=== PATIENT | female | born 1980 | race Caucasian/White ===

== ENCOUNTER 2018-04-02 08:42 | Inpatient (IN) ==
[2018-04-02] MEDS ORDERED: SODIUM CHLORIDE 0.9% 1,000 ML IV STA (09:02)
[2018-04-02] MEDS ORDERED: ONDANSETRON 4 MG/2 ML VIAL IV STA ×2 (09:02→13:53)
[2018-04-02 09:31] LABS: Basophils # 0.1 10*3/uL (0.0-0.2); Basophils % 0.9 % (0.0-0.8); Eosinophils # 0.2 10*3/uL (0.0-0.87); Hematocrit 37.4 VOL% (35.7-47.0); Hemoglobin 12.6 GM/DL (12.0-16.0); Immature Granulocytes % 0.1 %; Immature Granulocytes Absolute 0.01 #; Lymphocytes # 2.3 10*3/uL (1.4-4.0); Lymphocytes % 33.3 % (21.3-54.2); Mean Corpuscular HGB Conc 33.7 GM/DL (32-36); Mean Corpuscular Hemoglobin 32 PG (27-34); Mean Corpuscular Volume 94.7 FL (87-102); Mean Platelet Volume 9.2 FL (9.6-12.0); Monocytes # 0.6 10*3/uL (0.11-0.8); Monocytes % 8.3 % (1.7-12.7); Neutrophils # 3.8 10*3/uL (1.4-7.4); Neutrophils % 54.4 % (38.7-73.9); Platelet Count 334 T/CUMM (130-400); Red Blood Count 3.95 MC/CUMM (3.8-5.5); Red Cell Distribution Width 13.5 % (9.3-17.3)
[2018-04-02 10:02] LABS: Albumin 3.8 G/DL (3.4-5.0); Bilirubin,Total 0.5 MG/DL (0.2-1.0); Calcium 8.8 MG/DL (8.5-10.1); Potassium 3.6 MMOL/L (3.5-5.1); Total Protein 7.9 G/DL (6.4-8.3)
[2018-04-02 10:18] LABS: Apearance,Urine Slightly Hazy (Clear); Bilirubin,Urine Negative (Negative); Blood, Urine Negative (Negative); Glucose,Urine (UA) Negative (Negative); Ketones,Urine 5 mg/dL (Negative); Nitrite,Urine Negative (Negative); Protein,Urine Negative; RBC,Urine 7 /HPF (0-4); Squamous Epithelial Cell,Urine Occasional /HPF (0-10); Transitional Epi Cells,Urine Occasional /HPF (<1); Urine Color Yellow (Yellow); Urine Specific Gravity 1.017 (1.001-1.035); Urine Urobilinogen < 2.0 EU/DL (0.2-1.0); WBC,Urine 10 /HPF (0-6)
[2018-04-02] MEDS ORDERED: MORPHINE 4 MG/1 ML VIAL IV STA ×4 (13:53→18:24)
[2018-04-02] MEDS ORDERED: KETOROLAC 30 MG/1 ML VIAL IV STA (17:48)
[2018-04-02] MEDS ORDERED: KETOROLAC 30 MG/1 ML VIAL ONE (17:53)
[2018-04-02] MEDS ORDERED: AZITHROMYCIN 250 MG TABLET PO STA (18:24)
[2018-04-02] MEDS ORDERED: cefTRIAXone 1,000 MG in SODIUM CHLORIDE 0.9% 100 ML IV STA (18:24)
[2018-04-02] MEDS ORDERED: DEXTROSE 50% 25 GM/50 ML VIAL IV PRN ×2 (18:50)
[2018-04-02] MEDS ORDERED: ONDANSETRON 4 MG/2 ML VIAL IV PRN (18:50)
[2018-04-02] MEDS ORDERED: GLUCAGON 1 MG VIAL IM PRN ×2 (18:50)
[2018-04-02] MEDS ORDERED: ACETAMINOPHEN 325 MG TABLET PO PRN (18:54)
[2018-04-02] MEDS: GABAPENTIN 300 MG CAPSULE PO SCH (22:09)
[2018-04-02] MEDS: ENOXAPARIN 40 MG/0.4 ML SYRINGE SUBCUT SCH (22:11)
[2018-04-02] MEDS: PROMETHAZINE 25 MG TABLET PO PRN (22:14)
[2018-04-02] MEDS: INSULIN REGULAR 100 UNIT/ML SUBCUT SCH (22:14)
[2018-04-03 04:21] LABS: Basophils # 0.1 10*3/uL (0.0-0.2); Basophils % 0.8 % (0.0-0.8); Eosinophils # 0.3 10*3/uL (0.0-0.87); Eosinophils % 3.9 % (0.00-10.9); Hematocrit 34.4 VOL% (35.7-47.0); Hemoglobin 11.2 GM/DL (12.0-16.0); Immature Granulocytes % 0.3 %; Immature Granulocytes Absolute 0.02 #; Lymphocytes # 3.8 10*3/uL (1.4-4.0); Lymphocytes % 51.5 % (21.3-54.2); Mean Corpuscular HGB Conc 32.6 GM/DL (32-36); Mean Corpuscular Hemoglobin 32 PG (27-34); Mean Corpuscular Volume 96.6 FL (87-102); Mean Platelet Volume 9.4 FL (9.6-12.0); Monocytes # 0.7 10*3/uL (0.11-0.8); Monocytes % 9.1 % (1.7-12.7); Neutrophils # 2.5 10*3/uL (1.4-7.4); Neutrophils % 34.4 % (38.7-73.9); Platelet Count 296 T/CUMM (130-400); Red Blood Count 3.56 MC/CUMM (3.8-5.5); Red Cell Distribution Width 13.4 % (9.3-17.3); White Blood Count 7.4 T/CUMM (4-12)
[2018-04-03 05:19] LABS: Band Neutrophils 1 % (0-10); Eosinophils 4 % (0-10); Lymphocytes 53 % (20-55); Platelet Estimate Normal; Segmented Neutrophils 37 % (50-85); Total Cells Counted 100
[2018-04-03 05:20] LABS: Hypochromasia Slight
[2018-04-03 05:51] LABS: Bilirubin,Total 0.4 MG/DL (0.2-1.0); Osmolality,Calculated 279.3 MOS/KG (273-304); Potassium 3.6 MMOL/L (3.5-5.1); Total Protein 6.3 G/DL (6.4-8.3)
[2018-04-03] MEDS: INSULIN REGULAR 100 UNIT/ML SUBCUT SCH ×2 (07:43→12:42)
[2018-04-03] MEDS: PANTOPRAZOLE 40 MG TABLET PO SCH (08:07)
[2018-04-03] MEDS: MULTIVITAMIN (CENTRUM) TABLET PO SCH (08:08)
[2018-04-03] MEDS: ALBUTEROL/IPRATROPIUM 3 ML NEB RESP TX SCH ×3 (08:42→19:15)
[2018-04-03] MEDS ORDERED: Mirabegron [Myrbetriq] PO SCH (09:00)
[2018-04-03] MEDS: methylPREDNISolone SOD SUC 40 MG/1 ML VIAL IV SCH ×3 (09:17→23:49)
[2018-04-03] MEDS: NICOTINE 21 MG/24 HR PATCH TRANSDERM SCH (09:17)
[2018-04-03] MEDS: AZITHROMYCIN INJ 500 MG in SODIUM CHLORIDE 0.9% 250 ML IV SCH (18:08)
[2018-04-03] MEDS ORDERED: ALPRAZolam 0.5 MG TABLET PO ONE (19:38)
[2018-04-03] MEDS ORDERED: METOPROLOL TARTRATE 5 MG/5 ML VIAL IV ONE (19:38)
[2018-04-03] MEDS ORDERED: SODIUM CHLORIDE 0.9% 500 ML IV ONE (19:39)
[2018-04-03] MEDS: cefTRIAXone 1,000 MG in SYRINGE 1 EACH IV SCH (19:58)
[2018-04-03] MEDS: ENOXAPARIN 40 MG/0.4 ML SYRINGE SUBCUT SCH (20:04)
[2018-04-03] MEDS: GABAPENTIN 300 MG CAPSULE PO SCH (20:04)
[2018-04-03] MEDS: guaiFENesin/CODEINE 5 ML LIQUID PO PRN (21:32)
[2018-04-04] MEDS: ALBUTEROL/IPRATROPIUM 3 ML NEB RESP TX SCH ×4 (00:26→19:30)
[2018-04-04] MEDS: MULTIVITAMIN (CENTRUM) TABLET PO SCH (08:50)
[2018-04-04] MEDS: PANTOPRAZOLE 40 MG TABLET PO SCH (08:50)
[2018-04-04] MEDS: NICOTINE 21 MG/24 HR PATCH TRANSDERM SCH (08:51)
[2018-04-04] MEDS: methylPREDNISolone SOD SUC 40 MG/1 ML VIAL IV SCH ×2 (08:52→17:13)
[2018-04-04] MEDS: KETOROLAC 30 MG/1 ML VIAL IV PRN (11:26)
[2018-04-04] MEDS ORDERED: ENOXAPARIN 80 MG/0.8 ML SYRINGE SUBCUT ONE (13:32)
[2018-04-04] MEDS ORDERED: HYDROmorphone 2 MG/1 ML VIAL IV PRN (14:00)
[2018-04-04 15:18] LABS: Troponin I Only < 0.015 NG/ML (0.00-0.045)
[2018-04-04] MEDS: AZITHROMYCIN INJ 500 MG in SODIUM CHLORIDE 0.9% 250 ML IV SCH (18:26)
[2018-04-04] MEDS: METOPROLOL TARTRATE 25 MG TABLET PO SCH (20:18)
[2018-04-04] MEDS: guaiFENesin/CODEINE 5 ML LIQUID PO PRN (20:18)
[2018-04-04] MEDS: GABAPENTIN 300 MG CAPSULE PO SCH (20:18)
[2018-04-04] MEDS: ENOXAPARIN 40 MG/0.4 ML SYRINGE SUBCUT SCH (20:19)
[2018-04-04] MEDS: cefTRIAXone 1,000 MG in SYRINGE 1 EACH IV SCH (20:19)
[2018-04-04] MEDS: VANCOMYCIN INJ 1,250 MG in SODIUM CHLORIDE 0.9% 250 ML IV SCH (20:20)
[2018-04-04] MEDS: HYDROmorphone 2 MG/1 ML VIAL IV PRN (20:26)
[2018-04-05] MEDS: ALBUTEROL/IPRATROPIUM 3 ML NEB RESP TX SCH ×4 (00:40→19:29)
[2018-04-05] MEDS: VANCOMYCIN INJ 1,250 MG in SODIUM CHLORIDE 0.9% 250 ML IV SCH ×3 (04:39→21:01)
[2018-04-05] MEDS: HYDROmorphone 2 MG/1 ML VIAL IV PRN ×3 (04:39→20:47)
[2018-04-05] MEDS: METOPROLOL TARTRATE 25 MG TABLET PO SCH ×2 (08:35→20:52)
[2018-04-05] MEDS: NICOTINE 21 MG/24 HR PATCH TRANSDERM SCH (08:35)
[2018-04-05] MEDS: MULTIVITAMIN (CENTRUM) TABLET PO SCH (08:35)
[2018-04-05] MEDS: PANTOPRAZOLE 40 MG TABLET PO SCH (08:35)
[2018-04-05] MEDS: methylPREDNISolone SOD SUC 40 MG/1 ML VIAL IV SCH ×3 (08:36→17:55)
[2018-04-05] MEDS: KETOROLAC 30 MG/1 ML VIAL IV PRN (17:55)
[2018-04-05] MEDS: cefTRIAXone 1,000 MG in SYRINGE 1 EACH IV SCH (20:48)
[2018-04-05] MEDS: ENOXAPARIN 40 MG/0.4 ML SYRINGE SUBCUT SCH (20:51)
[2018-04-05] MEDS: GABAPENTIN 300 MG CAPSULE PO SCH (20:52)
[2018-04-05] MEDS: AZITHROMYCIN 250 MG TABLET PO SCH (20:52)
[2018-04-05] MEDS: guaiFENesin/CODEINE 5 ML LIQUID PO PRN (21:02)
[2018-04-05] MEDS: PROMETHAZINE 25 MG TABLET PO PRN (21:02)
[2018-04-06] MEDS: methylPREDNISolone SOD SUC 40 MG/1 ML VIAL IV SCH ×3 (00:13→16:54)
[2018-04-06] MEDS: ALBUTEROL/IPRATROPIUM 3 ML NEB RESP TX SCH ×4 (01:01→20:32)
[2018-04-06] MEDS: HYDROmorphone 2 MG/1 ML VIAL IV PRN ×3 (02:44→22:08)
[2018-04-06 05:18] LABS: Basophils % 0.1 % (0.0-0.8); Hematocrit 32.7 VOL% (35.7-47.0); Hemoglobin 10.6 GM/DL (12.0-16.0); Immature Granulocytes % 0.8 %; Immature Granulocytes Absolute 0.12 #; Lymphocytes # 1.3 10*3/uL (1.4-4.0); Lymphocytes % 9.1 % (21.3-54.2); Mean Corpuscular HGB Conc 32.4 GM/DL (32-36); Mean Corpuscular Hemoglobin 32 PG (27-34); Mean Corpuscular Volume 97.9 FL (87-102); Mean Platelet Volume 9.9 FL (9.6-12.0); Monocytes # 0.5 10*3/uL (0.11-0.8); Monocytes % 3.7 % (1.7-12.7); Neutrophils # 12.2 10*3/uL (1.4-7.4); Neutrophils % 86.3 % (38.7-73.9); Platelet Count 342 T/CUMM (130-400); Red Blood Count 3.34 MC/CUMM (3.8-5.5); Red Cell Distribution Width 13.9 % (9.3-17.3); White Blood Count 14.2 T/CUMM (4-12)
[2018-04-06] MEDS: VANCOMYCIN INJ 1,250 MG in SODIUM CHLORIDE 0.9% 250 ML IV SCH ×3 (05:18→20:29)
[2018-04-06 05:26] LABS: Calcium 8.4 MG/DL (8.5-10.1); Osmolality,Calculated 279.5 MOS/KG (273-304); Potassium 3.7 MMOL/L (3.5-5.1)
[2018-04-06] MEDS: NICOTINE 21 MG/24 HR PATCH TRANSDERM SCH (08:23)
[2018-04-06] MEDS: MULTIVITAMIN (CENTRUM) TABLET PO SCH (08:23)
[2018-04-06] MEDS: METOPROLOL TARTRATE 25 MG TABLET PO SCH ×2 (08:24→20:28)
[2018-04-06] MEDS: PANTOPRAZOLE 40 MG TABLET PO SCH (08:24)
[2018-04-06] MEDS: ALPRAZolam 0.5 MG TABLET PO SCH ×2 (16:56→21:43)
[2018-04-06] MEDS: GABAPENTIN 300 MG CAPSULE PO SCH (20:28)
[2018-04-06] MEDS: cefTRIAXone 1,000 MG in SYRINGE 1 EACH IV SCH (20:29)
[2018-04-06] MEDS: ENOXAPARIN 40 MG/0.4 ML SYRINGE SUBCUT SCH (20:30)
[2018-04-06] MEDS ORDERED: ALPRAZolam 0.5 MG TABLET PO SCH (21:00)
[2018-04-06] MEDS: AZITHROMYCIN 250 MG TABLET PO SCH (22:09)
[2018-04-07] MEDS: ALBUTEROL/IPRATROPIUM 3 ML NEB RESP TX SCH ×4 (00:21→21:18)
[2018-04-07] MEDS: methylPREDNISolone SOD SUC 40 MG/1 ML VIAL IV SCH ×3 (01:34→16:17)
[2018-04-07] MEDS: VANCOMYCIN INJ 1,250 MG in SODIUM CHLORIDE 0.9% 250 ML IV SCH ×3 (06:59→21:12)
[2018-04-07] MEDS: PANTOPRAZOLE 40 MG TABLET PO SCH (09:01)
[2018-04-07] MEDS: MULTIVITAMIN (CENTRUM) TABLET PO SCH (09:01)
[2018-04-07] MEDS: NICOTINE 21 MG/24 HR PATCH TRANSDERM SCH (09:01)
[2018-04-07] MEDS: ALPRAZolam 0.5 MG TABLET PO SCH ×2 (09:01→21:14)
[2018-04-07] MEDS: METOPROLOL TARTRATE 25 MG TABLET PO SCH ×2 (09:02→21:15)
[2018-04-07] MEDS: HYDROmorphone 2 MG/1 ML VIAL IV PRN ×2 (09:44→21:12)
[2018-04-07] MEDS: cefTRIAXone 1,000 MG in SYRINGE 1 EACH IV SCH (21:13)
[2018-04-07] MEDS: ENOXAPARIN 40 MG/0.4 ML SYRINGE SUBCUT SCH (21:13)
[2018-04-07] MEDS: GABAPENTIN 300 MG CAPSULE PO SCH (21:14)
[2018-04-07] MEDS: PROMETHAZINE 25 MG TABLET PO PRN (21:14)
[2018-04-07] MEDS: AZITHROMYCIN 250 MG TABLET PO SCH (21:14)
[2018-04-08] MEDS: ALBUTEROL/IPRATROPIUM 3 ML NEB RESP TX SCH ×4 (00:16→19:31)
[2018-04-08] MEDS: guaiFENesin/CODEINE 5 ML LIQUID PO PRN (00:17)
[2018-04-08] MEDS: methylPREDNISolone SOD SUC 40 MG/1 ML VIAL IV SCH ×2 (00:18→09:18)
[2018-04-08] MEDS: VANCOMYCIN INJ 1,250 MG in SODIUM CHLORIDE 0.9% 250 ML IV SCH ×2 (04:50→11:22)
[2018-04-08] MEDS: HYDROmorphone 2 MG/1 ML VIAL IV PRN ×3 (04:50→17:38)
[2018-04-08 05:32] LABS: Basophils % 0.1 % (0.0-0.8); Hematocrit 34.1 VOL% (35.7-47.0); Hemoglobin 11.4 GM/DL (12.0-16.0); Immature Granulocytes % 2.2 %; Immature Granulocytes Absolute 0.34 #; Lymphocytes # 1.8 10*3/uL (1.4-4.0); Lymphocytes % 11.4 % (21.3-54.2); Mean Corpuscular HGB Conc 33.4 GM/DL (32-36); Mean Corpuscular Hemoglobin 31 PG (27-34); Mean Corpuscular Volume 92.2 FL (87-102); Mean Platelet Volume 9.3 FL (9.6-12.0); Monocytes # 0.7 10*3/uL (0.11-0.8); Monocytes % 4.8 % (1.7-12.7); NRBC # 0.03 10*3/uL; Neutrophils # 12.5 10*3/uL (1.4-7.4); Neutrophils % 81.5 % (38.7-73.9); Platelet Count 440 T/CUMM (130-400); Red Cell Distribution Width 13.4 % (9.3-17.3); White Blood Count 15.4 T/CUMM (4-12)
[2018-04-08 05:50] LABS: Calcium 8.4 MG/DL (8.5-10.1); Osmolality,Calculated 281.4 MOS/KG (273-304); Potassium 3.5 MMOL/L (3.5-5.1)
[2018-04-08] MEDS: NICOTINE 21 MG/24 HR PATCH TRANSDERM SCH (09:15)
[2018-04-08] MEDS: PANTOPRAZOLE 40 MG TABLET PO SCH (09:16)
[2018-04-08] MEDS: MULTIVITAMIN (CENTRUM) TABLET PO SCH (09:16)
[2018-04-08] MEDS: METOPROLOL TARTRATE 25 MG TABLET PO SCH ×2 (09:16→20:30)
[2018-04-08] MEDS: ALPRAZolam 0.5 MG TABLET PO SCH ×2 (09:16→20:30)
[2018-04-08] MEDS ORDERED: DOXYCYCLINE HYCLATE 100 MG CAPSULE PO SCH (15:00)
[2018-04-08] MEDS: predniSONE 20 MG TABLET PO SCH (15:39)
[2018-04-08] MEDS: LEVOFLOXACIN 500 MG TABLET PO SCH (15:39)
[2018-04-08] MEDS: ENOXAPARIN 40 MG/0.4 ML SYRINGE SUBCUT SCH (20:30)
[2018-04-08] MEDS: GABAPENTIN 300 MG CAPSULE PO SCH (20:30)
[2018-04-08] MEDS: PROMETHAZINE 25 MG TABLET PO PRN (20:35)
[2018-04-09] MEDS: HYDROmorphone 2 MG/1 ML VIAL IV PRN ×2 (00:01→06:06)
[2018-04-09] MEDS: guaiFENesin/CODEINE 5 ML LIQUID PO PRN (00:02)
[2018-04-09] MEDS: ALBUTEROL/IPRATROPIUM 3 ML NEB RESP TX SCH ×2 (00:41→07:15)
[2018-04-09 05:49] LABS: Basophils # 0.1 10*3/uL (0.0-0.2); Basophils % 0.2 % (0.0-0.8); Eosinophils # 0.1 10*3/uL (0.0-0.87); Eosinophils % 0.4 % (0.00-10.9); Hematocrit 33.6 VOL% (35.7-47.0); Hemoglobin 11.2 GM/DL (12.0-16.0); Immature Granulocytes % 3.4 %; Immature Granulocytes Absolute 0.73 #; Lymphocytes # 3.2 10*3/uL (1.4-4.0); Lymphocytes % 15.2 % (21.3-54.2); Mean Corpuscular HGB Conc 33.3 GM/DL (32-36); Mean Corpuscular Hemoglobin 32 PG (27-34); Mean Corpuscular Volume 94.4 FL (87-102); Mean Platelet Volume 9.2 FL (9.6-12.0); Monocytes # 1.7 10*3/uL (0.11-0.8); Monocytes % 7.8 % (1.7-12.7); NRBC # 0.02 10*3/uL; Neutrophils # 15.6 10*3/uL (1.4-7.4); Platelet Count 424 T/CUMM (130-400); Red Blood Count 3.56 MC/CUMM (3.8-5.5); Red Cell Distribution Width 13.5 % (9.3-17.3); White Blood Count 21.3 T/CUMM (4-12)
[2018-04-09 06:19] LABS: Band Neutrophils 1 % (0-10); Lymphocytes 27 % (20-55); Macrocytosis 1+; Nucleated Red Blood Cells 1 (0-5); Platelet Estimate Increased; Segmented Neutrophils 70 % (50-85); Total Cells Counted 100
[2018-04-09 06:26] LABS: Calcium 8.2 MG/DL (8.5-10.1); Osmolality,Calculated 282.4 MOS/KG (273-304); Potassium 3.3 MMOL/L (3.5-5.1)
[2018-04-09] MEDS: LEVOFLOXACIN 500 MG TABLET PO SCH (08:43)
[2018-04-09] MEDS: MULTIVITAMIN (CENTRUM) TABLET PO SCH (08:43)
[2018-04-09] MEDS: PANTOPRAZOLE 40 MG TABLET PO SCH (08:43)
[2018-04-09] MEDS: ALPRAZolam 0.5 MG TABLET PO SCH (08:44)
[2018-04-09] MEDS: predniSONE 20 MG TABLET PO SCH (08:44)
[2018-04-09] MEDS: NICOTINE 21 MG/24 HR PATCH TRANSDERM SCH (08:44)
[2018-04-09] MEDS: METOPROLOL TARTRATE 25 MG TABLET PO SCH (08:44)
[2018-04-09 08:51] VITALS: BP 123/94
[2018-04-09] MEDS ORDERED: POTASSIUM CHLORIDE 20 MEQ TABLET PO PRN (09:06)
[2018-04-09] MEDS ORDERED: POTASSIUM CHLORIDE 20 MEQ TABLET PO ONE (10:43)
== END 2018-04-09 11:46 | disposition home or self-care (01) | DRG 190 ==
LOC: N.ED 08:42 → N.EDINP 18:50 → SUATTDRO 18:50 → N.EDINP 20:10 → N.TELEN 21:01
PROVIDERS: ADMIT Internal Medicine; ATTEND Internal Medicine

== ENCOUNTER 2019-08-15 18:53 | Observation (INO) ==
[2019-08-15] MEDS ORDERED: SODIUM CHLORIDE 0.9% 1,000 ML IV STA ×2 (19:35→22:04)
[2019-08-15] MEDS ORDERED: KETOROLAC 30 MG/1 ML VIAL IV STA (19:35)
[2019-08-15 20:12] LABS: Basophils # 0.1 10*3/uL (0.0-0.2); Basophils % 0.9 % (0.0-0.8); Eosinophils # 0.2 10*3/uL (0.0-0.87); Eosinophils % 2.1 % (0.00-10.9); Hematocrit 40.7 VOL% (35.7-47.0); Hemoglobin 13.2 GM/DL (12.0-16.0); Immature Granulocytes % 0.7 %; Immature Granulocytes Absolute 0.07 #; Lymphocytes # 3.5 10*3/uL (1.4-4.0); Lymphocytes % 33.5 % (21.3-54.2); Mean Corpuscular HGB Conc 32.4 GM/DL (32-36); Mean Platelet Volume 8.9 FL (9.6-12.0); Monocytes % 7.3 % (1.7-12.7); Neutrophils % 55.5 % (38.7-73.9); Platelet Count 289 T/CUMM (130-400); Red Blood Count 4.11 MC/CUMM (3.8-5.5); Red Cell Distribution Width 12.9 % (9.3-17.3); White Blood Count 10.5 T/CUMM (4-12)
[2019-08-15] MEDS ORDERED: ONDANSETRON 4 MG/2 ML VIAL IV ONE (20:30)
[2019-08-15 20:32] LABS: Alanine Aminotransferase 23 U/L (13-56); Albumin 3.9 G/DL (3.4-5.0); Alkaline Phosphatase 98 U/L (45-117); Aspartate Amino Transferase 14 U/L (0-37); Bilirubin,Total < 0.39 MG/DL (0.2-1.0); Blood Urea Nitrogen 12 MG/DL (7-18); Calcium 8.8 MG/DL (8.5-10.1); Estimated Glom Filtration Rate 85 ML/MIN; Glucose 85 MG/DL (74-106); Osmolality,Calculated 273.7 MOS/KG (273-304); Total Protein 7.5 G/DL (6.4-8.3)
[2019-08-15 20:42] LABS: Apearance,Urine CLEAR (Clear); Bacteria,Urine Occasional /HPF (Few); Bilirubin,Urine Negative (Negative); Blood, Urine Negative (Negative); Glucose,Urine (UA) Negative (Negative); Ketones,Urine Negative (Negative); Mucus,Urine Occasional /LPF (Occasional); Nitrite,Urine Negative (Negative); Protein,Urine Negative; RBC,Urine 8 /HPF (0-4); Renal Epithelial Cells,Urine Occasional /HPF (<1); Squamous Epithelial Cell,Urine Occasional /HPF (0-10); Urine Color Yellow (Yellow); Urine Specific Gravity 1.016 (1.001-1.035); Urine Urobilinogen < 2.0 EU/DL (0.2-1.0); WBC,Urine 3 /HPF (0-6)
[2019-08-15] MEDS ORDERED: METOCLOPRAMIDE 10 MG/2 ML VIAL IV STA (21:26)
[2019-08-15] MEDS ORDERED: PIPERACILLIN/TAZOBACTAM 3,375 MG in SODIUM CHLORIDE 0.9% 100 ML IV STA (22:08)
[2019-08-15] MEDS ORDERED: ONDANSETRON 4 MG/2 ML VIAL IV PRN (22:14)
[2019-08-15] MEDS ORDERED: MORPHINE 4 MG/1 ML VIAL IV PRN (22:14)
[2019-08-15] MEDS ORDERED: MORPHINE 4 MG/1 ML VIAL IV STA (23:13)
[2019-08-15] MEDS ORDERED: PROMETHAZINE INJ 12.5 MG in SODIUM CHLORIDE 0.9% 50 ML IV STA (23:13)
[2019-08-16] MEDS: DEXTROSE 5% NACL 0.45% 1,000 ML IV SCH ×3 (00:30→14:30)
[2019-08-16 05:11] LABS: Basophils # 0.1 10*3/uL (0.0-0.2); Basophils % 0.8 % (0.0-0.8); Eosinophils # 0.3 10*3/uL (0.0-0.87); Eosinophils % 2.5 % (0.00-10.9); Hemoglobin 11.3 GM/DL (12.0-16.0); Immature Granulocytes % 0.4 %; Immature Granulocytes Absolute 0.04 #; Lymphocytes # 3.7 10*3/uL (1.4-4.0); Lymphocytes % 36.4 % (21.3-54.2); Mean Corpuscular HGB Conc 32.3 GM/DL (32-36); Mean Corpuscular Volume 100.3 FL (87-102); Mean Platelet Volume 9.2 FL (9.6-12.0); Monocytes % 8.4 % (1.7-12.7); Neutrophils % 51.5 % (38.7-73.9); Platelet Count 241 T/CUMM (130-400); Red Blood Count 3.49 MC/CUMM (3.8-5.5); Red Cell Distribution Width 12.9 % (9.3-17.3); White Blood Count 10.2 T/CUMM (4-12)
[2019-08-16 05:36] LABS: Calcium 7.7 MG/DL (8.5-10.1); Osmolality,Calculated 280.3 MOS/KG (273-304)
[2019-08-16] MEDS ORDERED: PIPERACILLIN/TAZOBACTAM 3,375 MG in SODIUM CHLORIDE 0.9% 100 ML IV SCH (07:00)
[2019-08-16] MEDS ORDERED: ceFAZolin 1,000 MG in SYRINGE 1 EACH IV ONE (08:22)
[2019-08-16 08:35] LABS: Barbiturates Screen,Urine Negative (Negative); Benzodiazepines Screen,Urine Negative (Negative); Cannabinoid Screen,Urine Negative (Negative); Opiate Screen,Urine Positive (Negative); Phencyclidine Screen,Urine Negative (Negative)
[2019-08-16] MEDS ORDERED: PANTOPRAZOLE 40 MG VIAL IV SCH (09:00)
[2019-08-16] MEDS ORDERED: ONDANSETRON 4 MG/2 ML VIAL IV PRN (09:02)
[2019-08-16] MEDS ORDERED: PROMETHAZINE INJ 25 MG in SODIUM CHLORIDE 0.9% 50 ML IV PRN (09:02)
[2019-08-16] MEDS ORDERED: diphenhydrAMINE 50 MG/1 ML VIAL IV PRN (09:02)
[2019-08-16] MEDS ORDERED: BUPIVACAINE MPF 0.25% 30 ML VIAL ONE (09:43)
[2019-08-16] MEDS ORDERED: TISSUE ADHESIVE 1 EACH APPLICATOR TOP ONE (09:43)
[2019-08-16] MEDS ORDERED: LIDOCAINE 1%/EPI INJ 20 ML VIAL ONE (09:43)
[2019-08-16] MEDS ORDERED: ONDANSETRON 4 MG/2 ML VIAL ONE ×2 (11:18→11:30)
[2019-08-16] MEDS ORDERED: MEPERIDINE 25 MG/1 ML VIAL ONE ×2 (11:18→11:24)
[2019-08-16] MEDS: MEPERIDINE 25 MG/1 ML VIAL IV PRN ×2 (11:20→11:30)
[2019-08-16] MEDS ORDERED: PROMETHAZINE 25 MG/1 ML VIAL ONE (11:24)
[2019-08-16] MEDS ORDERED: PROPOFOL 200 MG/20 ML VIAL IV ONE (11:29)
[2019-08-16] MEDS ORDERED: SUCCINYLCHOLINE 200 MG/10 ML VIAL ONE (11:30)
[2019-08-16] MEDS ORDERED: DEXAMETHASONE 4 MG/1 ML VIAL ONE (11:30)
[2019-08-16] MEDS ORDERED: fentaNYL 100 MCG/2 ML VIAL ONE (11:30)
[2019-08-16] MEDS ORDERED: MIDAZOLAM 2 MG/2 ML VIAL ONE (11:30)
[2019-08-16] MEDS ORDERED: KETOROLAC 30 MG/1 ML VIAL ONE (11:30)
[2019-08-16] MEDS ORDERED: NEOSTIGMINE 10 MG/10 ML VIAL ONE (11:30)
[2019-08-16] MEDS ORDERED: ACETAMINOPHEN 1,000 MG/100 ML VIAL IV ONE (11:30)
[2019-08-16] MEDS ORDERED: ROCURONIUM 100 MG/10 ML VIAL IV ONE (11:30)
[2019-08-16] MEDS ORDERED: SEVOFLURANE 1 UNIT/15 MINUTE INH ONE (11:30)
[2019-08-16] MEDS ORDERED: LIDOCAINE 2% 5 ML VIAL ONE (11:30)
[2019-08-16] MEDS ORDERED: GLYCOPYRROLATE 0.4 MG/2 ML VIAL ONE (11:30)
[2019-08-16] MEDS ORDERED: LACTATED RINGERS 1,000 ML IV ONE (11:30)
[2019-08-16] MEDS ORDERED: HYDROmorphone 2 MG/1 ML VIAL IV ONE (15:06)
[2019-08-16 19:16] VITALS: BP 107/71
== END 2019-08-16 20:33 | disposition home or self-care (01) ==
LOC: N.EDINP 18:53 → N.ED 18:53 → N.3E 22:38
PROVIDERS: ADMIT Student in an Organized Health Care Education/Training Program; ATTEND Student in an Organized Health Care Education/Training Program

== ENCOUNTER 2021-01-17 08:04 | Observation (INO) ==
[2021-01-17] MEDS ORDERED: ALBUTEROL NEB SOLN 5 MG/ML 20 ML/BOTTLE CONT NEB STA (09:13)
[2021-01-17] MEDS ORDERED: LEVOFLOXACIN INJ 500 MG in PREMIX 1 EACH IV STA (09:40)
[2021-01-17] MEDS ORDERED: methylPREDNISolone SOD SUC 125 MG/2 ML VIAL IV STA (09:40)
[2021-01-17 10:08] LABS: Basophils # 0.1 10*3/uL (0.0-0.2); Basophils % 0.4 % (0.0-0.8); Eosinophils # 0.2 10*3/uL (0.0-0.87); Eosinophils % 1.4 % (0.00-10.9); Hematocrit 36.8 VOL% (35.7-47.0); Hemoglobin 12.1 GM/DL (12.0-16.0); Immature Granulocytes % 0.4 %; Immature Granulocytes Absolute 0.05 #; Lymphocytes # 3.1 10*3/uL (1.4-4.0); Lymphocytes % 23.3 % (21.3-54.2); Mean Corpuscular HGB Conc 32.9 GM/DL (32-36); Mean Corpuscular Volume 93.4 FL (87-102); Mean Platelet Volume 9.6 FL (9.6-12.0); Monocytes % 7.3 % (1.7-12.7); Neutrophils % 67.2 % (38.7-73.9); Platelet Count 316 T/CUMM (130-400); Red Blood Count 3.94 MC/CUMM (3.8-5.5); Red Cell Distribution Width 15.4 % (9.3-17.3); White Blood Count 13.5 T/CUMM (4-12)
[2021-01-17 10:50] LABS: Albumin 3.6 G/DL (3.4-5.0); Bilirubin,Total 0.6 MG/DL (0.2-1.0); Calcium 8.7 MG/DL (8.5-10.1); Osmolality,Calculated 273.7 MOS/KG (273-304); Potassium 2.8 MMOL/L (3.5-5.1); Total Protein 7.6 G/DL (6.4-8.2)
[2021-01-17] MEDS ORDERED: SODIUM CHLORIDE 0.9% 1,000 ML IV STA (11:40)
[2021-01-17] MEDS ORDERED: POTASSIUM CHLORIDE 20 MEQ TABLET PO STA (11:40)
[2021-01-17] MEDS ORDERED: DEXTROSE 50% 25 GM/50 ML VIAL IV PRN (16:07)
[2021-01-17] MEDS ORDERED: hydrALAZINE 20 MG/1 ML VIAL IV PRN (16:07)
[2021-01-17] MEDS ORDERED: GLUCAGON 1 MG VIAL IM PRN (16:07)
[2021-01-17] MEDS ORDERED: POTASSIUM CHLORIDE 20 MEQ TABLET PO ONE (16:12)
[2021-01-17] MEDS ORDERED: GABAPENTIN 300 MG CAPSULE PO PRN (16:29)
[2021-01-17] MEDS: ALBUTEROL/IPRATROPIUM 3 ML NEB RESP TX SCH (19:12)
[2021-01-17] MEDS: PANTOPRAZOLE 40 MG TABLET PO SCH (21:01)
[2021-01-17] MEDS: traZODone 50 MG TABLET PO SCH (21:01)
[2021-01-17] MEDS: cloNIDine 0.1 MG TABLET PO SCH (21:02)
[2021-01-17] MEDS: ENOXAPARIN 40 MG/0.4 ML SYRINGE SUBCUT SCH (21:02)
[2021-01-18] MEDS: ALBUTEROL/IPRATROPIUM 3 ML NEB RESP TX SCH ×5 (00:33→22:30)
[2021-01-18] MEDS: SODIUM CHLORIDE 0.9% 1,000 ML IV SCH ×3 (02:00→20:03)
[2021-01-18] MEDS: methylPREDNISolone SOD SUC 40 MG/1 ML VIAL IV SCH ×4 (03:04→18:37)
[2021-01-18 05:40] LABS: Basophils % 0.1 % (0.0-0.8); Hematocrit 31.1 VOL% (35.7-47.0); Hemoglobin 10.6 GM/DL (12.0-16.0); Immature Granulocytes % 0.6 %; Immature Granulocytes Absolute 0.09 #; Lymphocytes # 1.2 10*3/uL (1.4-4.0); Lymphocytes % 7.3 % (21.3-54.2); Mean Corpuscular HGB Conc 34.1 GM/DL (32-36); Mean Corpuscular Volume 92.6 FL (87-102); Mean Platelet Volume 9.2 FL (9.6-12.0); Monocytes % 3.4 % (1.7-12.7); Neutrophils % 88.6 % (38.7-73.9); Platelet Count 279 T/CUMM (130-400); Red Blood Count 3.36 MC/CUMM (3.8-5.5); Red Cell Distribution Width 15.7 % (9.3-17.3); White Blood Count 15.8 T/CUMM (4-12)
[2021-01-18 05:59] LABS: Calcium 9.1 MG/DL (8.5-10.1); Osmolality,Calculated 276.7 MOS/KG (273-304)
[2021-01-18] MEDS ORDERED: PANTOPRAZOLE 40 MG TABLET PO SCH (09:00)
[2021-01-18] MEDS: MULTIVITAMIN (CENTRUM) TABLET PO SCH (09:20)
[2021-01-18] MEDS: PANTOPRAZOLE 40 MG TABLET PO SCH ×2 (09:20→20:54)
[2021-01-18] MEDS: guaiFENesin/DM ER 600-30 MG TABLET PO PRN (09:20)
[2021-01-18] MEDS: FLUoxetine 20 MG CAPSULE PO SCH (09:21)
[2021-01-18] MEDS: LEVOFLOXACIN INJ 500 MG in PREMIX 1 EACH IV SCH (09:30)
[2021-01-18] MEDS: ACETAMINOPHEN 325 MG TABLET PO PRN (10:40)
[2021-01-18] MEDS: KETOROLAC 30 MG/1 ML VIAL IV PRN ×2 (16:11→23:09)
[2021-01-18 19:12] LABS: Bilirubin,Urine Negative (Negative); Blood, Urine Moderate mg/dL (Negative); Glucose,Urine (UA) Negative (Negative); Ketones,Urine Negative (Negative); Nitrite,Urine Negative (Negative); Protein,Urine Negative; RBC,Urine 19 /HPF (0-4); Squamous Epithelial Cell,Urine Occasional /HPF (0-10); Urine Appearance CLEAR (Clear); Urine Color Yellow (Yellow); Urine Urobilinogen < 2.0 EU/DL (0.2-1.0); WBC,Urine 1 /HPF (0-6)
[2021-01-18] MEDS: cloNIDine 0.1 MG TABLET PO SCH (20:54)
[2021-01-18] MEDS: ENOXAPARIN 40 MG/0.4 ML SYRINGE SUBCUT SCH (20:54)
[2021-01-18] MEDS: traZODone 50 MG TABLET PO SCH (20:54)
[2021-01-18] MEDS: ONDANSETRON 4 MG/2 ML VIAL IV PRN (23:08)
[2021-01-18] MEDS: BENZONATATE 100 MG CAPSULE PO PRN (23:08)
[2021-01-19] MEDS: methylPREDNISolone SOD SUC 40 MG/1 ML VIAL IV SCH ×2 (01:15→09:15)
[2021-01-19] MEDS: BENZONATATE 100 MG CAPSULE PO PRN ×2 (04:38→13:28)
[2021-01-19 05:17] LABS: Basophils % 0.1 % (0.0-0.8); Hematocrit 30.9 VOL% (35.7-47.0); Hemoglobin 10.1 GM/DL (12.0-16.0); Immature Granulocytes % 1.1 %; Immature Granulocytes Absolute 0.25 #; Lymphocytes # 1.3 10*3/uL (1.4-4.0); Lymphocytes % 6.1 % (21.3-54.2); Mean Corpuscular HGB Conc 32.7 GM/DL (32-36); Mean Corpuscular Volume 94.8 FL (87-102); Mean Platelet Volume 9.5 FL (9.6-12.0); Monocytes % 3.7 % (1.7-12.7); Platelet Count 296 T/CUMM (130-400); Red Blood Count 3.26 MC/CUMM (3.8-5.5); White Blood Count 21.8 T/CUMM (4-12)
[2021-01-19 05:59] LABS: Calcium 9.1 MG/DL (8.5-10.1); Osmolality,Calculated 286.1 MOS/KG (273-304); Potassium 3.9 MMOL/L (3.5-5.1)
[2021-01-19] MEDS: BUPRENORPHINE NALOXONE SL SCH ×3 (07:36→09:15)
[2021-01-19] MEDS: ALBUTEROL/IPRATROPIUM 3 ML NEB RESP TX SCH ×2 (08:20→16:38)
[2021-01-19] MEDS: SODIUM CHLORIDE 0.9% 1,000 ML IV SCH (09:12)
[2021-01-19] MEDS: PANTOPRAZOLE 40 MG TABLET PO SCH (09:14)
[2021-01-19] MEDS: MULTIVITAMIN (CENTRUM) TABLET PO SCH (09:14)
[2021-01-19] MEDS: FLUoxetine 20 MG CAPSULE PO SCH (09:14)
[2021-01-19] MEDS: ONDANSETRON 4 MG/2 ML VIAL IV PRN (09:17)
[2021-01-19] MEDS: KETOROLAC 30 MG/1 ML VIAL IV PRN (09:18)
[2021-01-19] MEDS: LEVOFLOXACIN INJ 500 MG in PREMIX 1 EACH IV SCH (09:18)
[2021-01-19] MEDS: guaiFENesin/DM ER 600-30 MG TABLET PO PRN (13:29)
[2021-01-19] MEDS: ACETAMINOPHEN 325 MG TABLET PO PRN (13:55)
[2021-01-19 16:23] VITALS: BP 138/77
== END 2021-01-19 17:18 | disposition home health service (06) ==
LOC: N.EDINP 08:04 → N.ED 08:04 → N.3E 18:21
PROVIDERS: ADMIT Internal Medicine; ATTEND Internal Medicine